=== PATIENT | female | born 2000 | race Caucasian/White ===

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

== ENCOUNTER 2022-04-15 11:56 | Emergency (ER) | payer OTHER ==
[~2022-04-15] VITALS: Ht 175.3 cm; Wt 63.5 kg
[~2022-04-15 11:56] MED LIST: ZOLOFT100 MG PO
[2022-04-15] MEDS ORDERED: 3-DAY VAGINAL C21 GM VAG (12:49)
[2022-04-15] MEDS ORDERED: METRONIDAZOLE500 MG PO (12:49)
== END 2022-04-15 13:11 | disposition home or self-care (01) ==
LOC: ER 11:56
DX: N76.0 Acute vaginitis (principal); B96.89 Other specified bacterial agents as the cause of diseases classified elsewhere; Z28.311 Partially vaccinated for COVID-19